=== PATIENT | female | born 1965 | race Caucasian/White ===

== ENCOUNTER 2018-11-13 23:23 | Inpatient (IN) | payer BC, MEDICAID ==
[~2018-11-13] VITALS: Ht 152.4 cm; Wt 66.2 kg
[~2018-11-13 23:23] MED LIST: CYCL10TA7 PO; IBUP-1542 PO
[2018-11-14] MEDS ORDERED: SOD CHLORIDE 0.9% 500 ML IV STA (00:34)
[2018-11-14] MEDS ORDERED: MECL12.574 PO (02:31)
[2018-11-14] MEDS ORDERED: ACETAMINOPHEN 325 MG TAB PO PRN (06:00)
[2018-11-14] MEDS ORDERED: NACL 0.9% 3 ML SYG IV SCH (06:00)
[2018-11-14] MEDS ORDERED: ONDANSETRON 4 MG INJ IV PRN (06:00)
[2018-11-14] MEDS: HEPARIN 5,000 UNIT/1 ML VIAL SC SCH ×2 (08:23→20:55)
[2018-11-14] MEDS: ASPIRIN 81 MG TAB PO SCH (08:23)
--- NOTE | 2018-11-14 09:22 | HP ---
Assessment/Plan VTE Prophylaxis Pharmacological prophylaxis: heparin Lines/Catheters IV Catheter Type (from Nrs): Peripheral IV Assessment/Plan Assessment/Plan 53-year-old female with no significant past medical history who presents the ER complaining of headache, right upper extremity pain with mild weakness and questionable facial numbness. Was head CT showing a benign arachnoid cyst otherwise no acute findings PLAN -Patient is more bothered by right upper extremity pain especially in her shoulder area. Denied trauma. Head CT is negative for acute findings. She did mention about having had an MRI yesterday which showed water in her brain, which I believe is from the arachnoid cyst as noted on the CT -Plan is to manage her blood pressure -Obtain right shoulder x-ray -will treat with ibuprofen for possible arthritic pain in the right shoulder -Neurology consult -will leave the decision about repeating an MRI or additional brain imaging to neurology -We will start patient on low-dose aspirin and statin Result Diagram: 11/14/1810311/14/18 0104 Results 24hrs Laboratory Tests Test 11/14/18 00:47 11/14/18 01:04 11/14/18 01:09 Bedside Glucose 109 White Blood Count 6.4 Red Blood Count 4.58 Hemoglobin 12.5 Hematocrit 38.7 Mean Corpuscular Volume 84.5 Mean Corpuscular Hemoglobin 27.3 L Mean Corpuscular 32.3 Hemoglobin Concent Red Cell Distribution Width 12.9 Platelet Count 214 Mean Platelet Volume 11.6 H Immature Granulocytes % 0.200 Neutrophils % 52.7 Lymphocytes % 35.0 Monocytes % 7.7 Eosinophils % 3.9 Basophils % 0.5 Nucleated Red Blood Cells % 0.0 Immature Granulocytes # 0.010 Neutrophils # 3.4 Lymphocytes # 2.2 Monocytes # 0.5 Eosinophils # 0.3 Basophils # 0.0 Nucleated Red Blood Cells # 0.0 Prothrombin Time 11.7 L Prothrombin Time Ratio 0.9 INR International 0.85 Normalized Ratio Activated Partial Thromboplast 30.0 Time Sodium Level 143 Potassium Level 4.2 Chloride Level 108 Carbon Dioxide Level 26 Anion Gap 9 Blood Urea Nitrogen 18 Creatinine 0.45 Est Glomerular Filtrat > 60 Rate mL/min Glucose Level 101 Hemoglobin A1c 5.0 Calcium Level 10.0 Total Bilirubin 0.2 Direct Bilirubin 0.00 Indirect Bilirubin 0.2 Aspartate Amino 26 Transf (AST/SGOT) Alanine 25 Aminotransferase (ALT/SGPT) Alkaline Phosphatase 106 Troponin I < 0.012 Total Protein 7.5 Albumin 4.4 Globulin 3.10 Albumin/Globulin Ratio 1.41 Triglycerides Level 253 H Cholesterol Level 215 H LDL Cholesterol, Calculated 117 HDL Cholesterol 47 Cholesterol/HDL Ratio 4.5 Urine Color YELLOW Urine Clarity SLIGHTLY CLOUDY A Urine pH 5.0 Urine Specific [place] 1.020 Urine Ketones NEGATIVE Urine Nitrite NEGATIVE Urine Bilirubin NEGATIVE Urine Urobilinogen NEGATIVE Urine Leukocyte Esterase NEGATIVE Urine Microscopic RBC 2 Urine Microscopic WBC 3 Urine Squamous FEW Epithelial Cells Urine Bacteria FEW A Urine Mucus FEW A Urine Hemoglobin 1+ H Urine Glucose NEGATIVE Urine Total Protein NEGATIVE Urine Opiates Screen Negative Urine Barbiturates Negative Urine Amphetamines Screen Negative Urine Benzodiazepines Screen Negative Urine Cocaine Screen Negative Urine Cannabinoids Negative HPI/ROS Hx of Present Illness This is a 53-year-old female with no significant past medical history who presents the ER complaining of headache, right upper extremity pain with mild weakness and questionable facial numbness. She said she had an MRI at the outside facility yesterday and was told that that she has " water in her brain". On physical exam, patient does not have any focal weakness or numbness. She does have pain in the right upper extremity and shoulder area. She has full range of motion. She denies trauma. She denied slurred speech, facial droop, seizure-like activity, chest pain or shortness of breath. Her headache is intermittent and diffuse.. When she presented to ER, blood pressure was 180/88. Head CT shows a benign arachnoid cyst n the right middle cranial fossa otherwise no acute findings. PMH/Family/Social Past Medical History Medical History: other (See HPI) Medications Current Medications IV Flush (NS 3 ml) 3 ml PER PROTOCOL IV ; Start 11/14/18 at 06:00 Ondansetron HCl (Zofran Inj) 4 mg Q6H PRN IV NAUSEA/VOMITING; Start 11/14/18 at 06:00 Aspirin (Aspirin) 81 mg DAILY PO Last administered on 11/14/18at 08:23; Admin Dose 81 MG; Start 11/14/18 at 09:00 Acetaminophen (Tylenol Tab) 650 mg Q6H PRN PO .PAIN 1-3 OR TEMP; Start 11/14/18 at 06:00 Heparin Sodium (Porcine) (Heparin (5000 Units/1ml)) 5,000 unit Q12 SC Last administered on 11/14/18at 08:23; Admin Dose 5,000 UNIT; Start 11/14/18 at 09:00 Coded Allergies: No Known Allergy (Unverified , 11/14/18) Past Surgical History Past Surgical Hx: other (See HPI) Family History Significant Family History: no pertinent family hx Social History Alcohol Use: none Smoking Status: Never smoker Drug Use: none Exam/Review of Systems Vital Signs Vitals Vital Signs Date Temp Pulse Resp B/P (MAP) Pulse Ox O2 O2 Flow FiO2 Time Delivery Rate 11/14/18 98.1 65 15 122/71 99 Room Air 07:53 (88) Exam Constitutional: alert, oriented, well developed Head: normocephalic, atraumatic Eyes: EOMI, PERRL Respiratory: clear to auscultation, normal air movement Cardiovascular: regular rate and rhythm, nl pulses Gastrointestinal: soft, non-tender Musculoskeletal: other (Right shoulder pain) Neurological: nl mental status, nl speech, nl strength ROULA WOMACK MD Nov 14, 2018 09:22
[2018-11-14 13:25] VITALS: Ht 152.4 cm; Wt 66.2 kg
[2018-11-14 13:29] VITALS: BP 135/82; PULSE 77; RESP 18
[2018-11-14 13:36] VITALS: PULSE 80
--- NOTE | 2018-11-14 14:42 | QN ---
Documentation Comment 53-year-old female with history of headaches, vertigo, admitted with headache followed by right upper extremity numbness. Brain MRI with no acute intracranial pathology. Her symptoms have improved. We will go ahead and place a carotid ultrasound. We will call neurology evaluation and follow-up their recommendations. Patient was seen in collaboration with Dr. Sharp. AGNIESZKA CAMPBELL NP Nov 14, 2018 14:42
[2018-11-14 15:28] VITALS: BP 135/82; PULSE 79; RESP 18
[2018-11-14 16:03] VITALS: PULSE 78
--- NOTE | 2018-11-14 16:10 | CONS ---
Assessment/Plan Assessment/Plan Hospital Course 53 yo F with hx of migraines who presents for evaluation of shoulder pain, transient R forearm weakness/numbness in the context of headache... for which neurology is consulted. The clinical picture was most ominously concerning for TIA/minor stroke. MRI brain is reassuringly without subacute ischemia. Complicated migraine is aditionally considered... P: Trial of NSAIDs PRN headache as renal function allows BP and other medical management per primary PT/OT as necessary Will follow clinically, to recommend neurologic studies, as necessary Consultation Date/Type/Reason Type of Consult Neurology Reason for Consultation Headache, dizziness, R forearm numbness Requesting Provider: AGNIESZKA CAMPBELL NP Date/Time of Note DATE: 11/14/18 TIME: 15:52 Hx of Present Illness 53 yo F with reported hx of migraines, peripheral vertigo, and other comorbidities who presents for evaluation of R shoulder pain with forearm weakness/numbness. History was obtained from pt, daughter, HCP and chart review. Per pt report, she started having a headache with R shoulder pain ~ 3 days ago. She went for an MRI as an oupatient and was told that she had "water in her brain" which is why she presented to the ED. She states that when she arrived to the ED and was asked to sign papers, that's when she noticed the weakness and numbness in her R forearm as she was unable to write. She states that the weakness and numbness lasted a couple minutes before going away on its own. She denies similar sx in the past. She denies recent head injury or trauma. She endorses a migraine at this time, and currently denies weakness, dizziness, lightheadedness, changes in speech or vision, numbness or tingling. She also states that she has a 10 year hx of migraines. She described her migraines as headaches that come on gradually, start in the front of her head and occasionally radiate to the back of her head. She states that the pain usually severe, 10/10, that is dull and throbbing. Accompanying symptoms include dizziness with occasional nausea. She states that they usually go away with use of tylenol or OTC medicine. She denies aggravating factors. It is additionally elsewhere noted: Hx of Present Illness This is a 53-year-old female with no significant past medical history who presents the ER complaining of headache, right upper extremity pain with mild weakness and questionable facial numbness. She said she had an MRI at the outside facility yesterday and was told that that she has " water in her brain". On physical exam, patient does not have any focal weakness or numbness. She does have pain in the right upper extremity and shoulder area. She has full range of motion. She denies trauma. She denied slurred speech, facial droop, seizure-like activity, chest pain or shortness of breath. Her headache is intermittent and diffuse.. When she presented to ER, blood pressure was 180/88. Head CT shows a benign arachnoid cyst n the right middle cranial fossa otherwise no acute findings. negative unless noted otherwise in HPI Exam/Review of Systems Exam Vitals Vital Signs Date Temp Pulse Resp B/P (MAP) Pulse Ox O2 O2 Flow FiO2 Time Delivery Rate 11/14/18 97.2 79 18 135/82 96 15:28 (99) 11/14/18 Room Air 07:53 Exam PE: Gen Appearance: No Apparent Distress HEENT: Normocephalic Cardiovascular: Regular rate Lungs: Clear bilaterally Abdomen: Soft Extremities: Dry NE: The patient was alert and oriented. Language was normal. Fund of knowledge was normal. Pupils were equal and reactive to light. There was no afferent pupillary defect. Visual rueda were normal. Funduscopic examination was limited. Extra-ocular movements were full. Ptosis was absent. There was no nystagmus. Facial sensation was normal. Face was symmetric with normal strength. Hearing was intact. Palate movements were normal. Neck strength was normal. There was normal tongue bulk and speed of movement. Tone was normal. Muscle bulk was normal. I did not see fasciculations. Arms and legs were strong. Vibration sensation was normal. Temperature and pinprick sensation was normal. Rapid alternating movements were normal. There was no dysmetria. There was no intention tremor. Gait was deferred due to bedrest. Arm and leg reflexes were 2+ and symmetric. Gastelum's sign was absent. Plantar responses were flexor. Results Result Diagram: 11/14/1810311/14/18103 Results 24hrs Laboratory Tests Test 11/14/18 00:47 11/14/18 01:04 11/14/18 01:09 Bedside Glucose 109 White Blood Count 6.4 Red Blood Count 4.58 Hemoglobin 12.5 Hematocrit 38.7 Mean Corpuscular Volume 84.5 Mean Corpuscular Hemoglobin 27.3 L Mean Corpuscular 32.3 Hemoglobin Concent Red Cell Distribution Width 12.9 Platelet Count 214 Mean Platelet Volume 11.6 H Immature Granulocytes % 0.200 Neutrophils % 52.7 Lymphocytes % 35.0 Monocytes % 7.7 Eosinophils % 3.9 Basophils % 0.5 Nucleated Red Blood Cells % 0.0 Immature Granulocytes # 0.010 Neutrophils # 3.4 Lymphocytes # 2.2 Monocytes # 0.5 Eosinophils # 0.3 Basophils # 0.0 Nucleated Red Blood Cells # 0.0 Prothrombin Time 11.7 L Prothrombin Time Ratio 0.9 INR International 0.85 Normalized Ratio Activated Partial Thromboplast 30.0 Time Sodium Level 143 Potassium Level 4.2 Chloride Level 108 Carbon Dioxide Level 26 Anion Gap 9 Blood Urea Nitrogen 18 Creatinine 0.45 Est Glomerular Filtrat > 60 Rate mL/min Glucose Level 101 Hemoglobin A1c 5.0 Calcium Level 10.0 Total Bilirubin 0.2 Direct Bilirubin 0.00 Indirect Bilirubin 0.2 Aspartate Amino 26 Transf (AST/SGOT) Alanine 25 Aminotransferase (ALT/SGPT) Alkaline Phosphatase 106 Troponin I < 0.012 Total Protein 7.5 Albumin 4.4 Globulin 3.10 Albumin/Globulin Ratio 1.41 Triglycerides Level 253 H Cholesterol Level 215 H LDL Cholesterol, Calculated 117 HDL Cholesterol 47 Cholesterol/HDL Ratio 4.5 Urine Color YELLOW Urine Clarity SLIGHTLY CLOUDY A Urine pH 5.0 Urine Specific [place] 1.020 Urine Ketones NEGATIVE Urine Nitrite NEGATIVE Urine Bilirubin NEGATIVE Urine Urobilinogen NEGATIVE Urine Leukocyte Esterase NEGATIVE Urine Microscopic RBC 2 Urine Microscopic WBC 3 Urine Squamous FEW Epithelial Cells Urine Bacteria FEW A Urine Mucus FEW A Urine Hemoglobin 1+ H Urine Glucose NEGATIVE Urine Total Protein NEGATIVE Urine Opiates Screen Negative Urine Barbiturates Negative Urine Amphetamines Screen Negative Urine Benzodiazepines Screen Negative Urine Cocaine Screen Negative Urine Cannabinoids Negative Medications Medication Current Medications IV Flush (NS 3 ml) 3 ml PER PROTOCOL IV ; Start 11/14/18 at 06:00 Ondansetron HCl (Zofran Inj) 4 mg Q6H PRN IV NAUSEA/VOMITING; Start 11/14/18 at 06:00 Aspirin (Aspirin) 81 mg DAILY PO Last administered on 11/14/18at 08:23; Admin Dose 81 MG; Start 11/14/18 at 09:00 Acetaminophen (Tylenol Tab) 650 mg Q6H PRN PO .PAIN 1-3 OR TEMP Last ad ministered on 11/14/18at 14:02; Admin Dose 650 MG; Start 11/14/18 at 06:00 Heparin Sodium (Porcine) (Heparin (5000 Units/1ml)) 5,000 unit Q12 SC Last administered on 11/14/18 08:23; Admin Dose 5,000 UNIT; Start 11/14/18 at 09:00 Atorvastatin Calcium (Lipitor) 20 mg QHS PO ; Start 11/14/18 at 21:00 Past Medical History reviewed Medical History: other (See HPI) Home Meds Active Scripts Ibuprofen* (Motrin*) 600 Mg Tab, 600 MG PO Q6H PRN for PAIN AND OR ELEVATED TEMP, #30 Prov:SYEDA GREEN. 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/15 Reported Medications Meclizine Hcl* (Antivert*) 12.5 Mg Tab, 12.5 MG PO Q8H PRN for VERTIGO, #30 TAB 11/14/18 Discontinued Scripts Cyclobenzaprine Hcl* (Cyclobenzaprine Hcl*) 10 Mg Tablet, 10 MG PO TID, #15 TAB Prov:SYEDA GREEN. 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/15 Medications Current Medications IV Flush (NS 3 ml) 3 ml PER PROTOCOL IV ; Start 11/14/18 at 06:00 Ondansetron HCl (Zofran Inj) 4 mg Q6H PRN IV NAUSEA/VOMITING; Start 11/14/18 at 06:00 Aspirin (Aspirin) 81 mg DAILY PO Last administered on 11/14/18at 08:23; Admin Dose 81 MG; Start 11/14/18 at 09:00 Acetaminophen (Tylenol Tab) 650 mg Q6H PRN PO .PAIN 1-3 OR TEMP Last administered on 11/14/18at 14:02; Admin Dose 650 MG; Start 11/14/18 at 06:00 Heparin Sodium (Porcine) (Heparin (5000 Units/1ml)) 5,000 unit Q12 SC Last administered on 11/14/18at 08:23; Admin Dose 5,000 UNIT; Start 11/14/18 at 09:00 Atorvastatin Calcium (Lipitor) 20 mg QHS PO ; Start 11/14/18 at 21:00 Allergies: Coded Allergies: No Known Allergy (Unverified , 11/14/18) Past Surgical History reviewed Past Surgical Hx: other (See HPI) Social History reviewed Alcohol Use: none Smoking Status: Never smoker Drug Use: none ABHILASH THOMPSON NP Nov 14, 2018 16:03 FRANKIE LOWERY Nov 15, 2018 06:51
[2018-11-14 19:58] VITALS: BP 129/71; PULSE 77; RESP 18
[2018-11-14 20:03] VITALS: PULSE 81
[2018-11-14] MEDS ORDERED: ATORVASTATIN 20 MG TAB PO SCH (21:00)
[2018-11-15] VITALS (10 sets, daily range): BP systolic 125–133; BP diastolic 68–77; PULSE 72–93; RESP 16–18
[2018-11-15] MEDS: ASPIRIN 81 MG TAB PO SCH (08:16)
[2018-11-15] MEDS: HEPARIN 5,000 UNIT/1 ML VIAL SC SCH (08:18)
[2018-11-15] MEDS ORDERED: NAPROXEN 250 MG TAB PO PRN (14:00)
--- NOTE | 2018-11-15 14:37 | PDOCDIS ---
Discharge Instructions CONDITION [id number] Patient Condition: [id number] Stable HOME CARE INSTRUCTIONS: [id number] Diet Instructions: [id number] Low Fat /Cholesterol FOLLOW UP/APPOINTMENTS Follow-up Plan Follow-up with primary care physician in 1 week. AGNIESZKA CAMPBELL NP Nov 15, 2018 14:37
[2018-11-15] MEDS ORDERED: OMEG1CAP20 PO (14:38)
[2018-11-15] MEDS ORDERED: NAPR-683 PO (14:38)
--- NOTE | 2018-11-15 14:39 | CONS ---
Assessment/Plan Assessment/Plan Hospital Course 53 yo F with hx of migraines who presents for evaluation of shoulder pain, transient R forearm weakness/numbness in the context of headache... for which neurology is consulted. The clinical picture was most ominously concerning for TIA/minor stroke. MRI brain is reassuringly without subacute ischemia. Complicated migraine is a diagnosis of exclusion. CUS is unremarkable. LDL 117 P: Ok to cont trial of NSAIDs PRN headache Protonix for GI ppx while on NSAIDs BP and other medical management per primary PT/OT as necessary Will follow clinically, to recommend neurologic studies, as necessary Consultation Date/Type/Reason Admit Date/Time Nov 14, 2018 at 03:17 Type of Consult Neurology Reason for Consultation Headache, dizziness, R forearm numbness Requesting Provider: AGNIESZKA CAMPBELL NP Date/Time of Note DATE: 11/15/18 TIME: 14:39 24 HR Interval Summary Free Text/Dictation Continues acute care. Pt denies headache, dizziness, numbness, or other focal sx at this time. Exam Vital Signs Vitals Vital Signs Date Temp Pulse Resp B/P (MAP) Pulse Ox O2 O2 Flow FiO2 Time Delivery Rate 11/15/18 75 12:04 11/15/18 98.0 16 133/77 98 Room Air 11:35 (95) Intake and Output 11/14/18 11/14/18 11/15/18 1515:00 23:00 07:00 IntakeIntake Total 480 ml 700 ml BalanceBalance 480 ml 700 ml Exam PE: Gen Appearance: No Apparent Distress HEENT: Normocephalic Cardiovascular: Regular rate Lungs: Clear bilaterally Abdomen: Soft Extremities: Dry NE: The patient was alert and oriented. Language was normal. Fund of knowledge was normal. Pupils were equal and reactive to light. There was no afferent pupillary defect. Visual rueda were normal. Funduscopic examination was limited. Extra-ocular movements were full. Ptosis was absent. There was no nystagmus. Facial sensation was normal. Face was symmetric with normal strength. Hearing was intact. Palate movements were normal. Neck strength was normal. There was normal tongue bulk and speed of movement. Tone was normal. Muscle bulk was normal. I did not see fasciculations. Arms and legs were strong. Vibration sensation was normal. Temperature and pinprick sensation was normal. Rapid alternating movements were normal. There was no dysmetria. There was no intention tremor. Gait was steady. Arm and leg reflexes were 2+ and symmetric. Gastelum's sign was absent. Plantar responses were flexor. ABHILASH THOMPSON NP Nov 15, 2018 14:39
--- NOTE | 2018-11-15 14:42 | DS ---
Date/Time of Note Date/Time of Note DATE: 11/15/18 TIME: 14:41 Discharge Summary Admission/Discharge Info Admit Date/Time Nov 14, 2018 at 03:17 Discharge Date/Time Discharge Diagnosis Headache/numbness. Resolved. Stroke ruled out. Triglyceridemia Patient Condition: Stable Consults Procedures 11/14/2018. Brain MRI. IMPRESSION: 1. No evidence of acute intracranial pathology. 2. Right middle cranial fossa arachnoid cyst. Hospital Course 53-year-old female with history of headaches, vertigo, admitted with headache followed by right upper extremity numbness. Imaging studies including brain MRI unremarkable. Patient was evaluated by neurologist. Patient's symptoms improved with low-dose NSAIDs. There is no further neuro work-up indicated. Patient is feeling back to her normal with no further numbness or headache and wanted to be discharged. Patient was also noted with triglyceridemia for which fish oil supplementation and diet changes advised with follow-up labs in 4 weeks. Approximately 60 m spent in correlating the discharge on this patient. Home Meds Active Scripts [place]-3/Dha/Epa/Fish Oil (FISH OIL 1,000 MG SOFTGEL) 1 Each Capsule, 1 EACH PO B ID, #60 CAP Prov:AGNIESZKA CAMPBELL NP 11/15/18 Naproxen* (Naproxen*) 250 Mg Tablet, 250 MG PO BID PRN for HEADACHE, #30 TAB Prov:AGNIESZKA CAMPBELL V. [employer] 11/15/18 Ibuprofen* (Motrin*) 600 Mg Tab, 600 MG PO Q6H PRN for PAIN AND OR ELEVATED TEMP, #30 Prov:SYEDA GREEN NP 01/09/15 Reported Medications Meclizine Hcl* (Antivert*) 12.5 Mg Tab, 12.5 MG PO Q8H PRN for VERTIGO, #30 TAB 11/14/18 Discontinued Scripts Cyclobenzaprine Hcl* (Cyclobenzaprine Hcl*) 10 Mg Tablet, 10 MG PO TID, #15 TAB Prov:SYEDA GREEN NP 01/09/15 Follow-up Plan Follow-up with primary care physician in 1 week. Primary Care Provider Care Physician No Primary Pending Labs Laboratory Tests Test 11/15/18 05:04 White Blood Count 4.9 10^3/ul (4.8-10.8) Red Blood Count 4.80 10^6/ul (4.20-5.40) Hemoglobin 12.8 g/dl (12.0-16.0) Hematocrit 40.9 % (37.0-47.0) Mean Corpuscular Volume 85.2 fl (82.0-101.0) Mean Corpuscular Hemoglobin 26.7 pg (29.0-33.0) Mean Corpuscular Hemoglobin Concent 31.3 g/dl (32.0-37.0) Red Cell Distribution Width 12.8 % (11.5-14.5) Platelet Count 203 10^3/UL (140-415) Mean Platelet Volume 11.5 fl (7.4-10.4) Immature Granulocytes % 0.200 % (0.001-0.429) Neutrophils % 50.4 % (39.0-77.0) Lymphocytes % 38.0 % (15.0-51.0) Monocytes % 6.3 % (0.0-11.0) Eosinophils % 4.3 % (0.0-7.0) Basophils % 0.8 % (0.0-2.0) Nucleated Red Blood Cells % 0.0 /100WBC (0.0-0.0) Immature Granulocytes # 0.010 10^3/ul (0.0-0.031) Neutrophils # 2.5 10^3/ul (1.6-7.5) Lymphocytes # 1.9 10^3/ul (0.8-2.9) Monocytes # 0.3 10^3/ul (0.3-0.9) Eosinophils # 0.2 10^3/ul (0.0-0.5) Basophils # 0.0 10^3/ul (0.0-0.1) Nucleated Red Blood Cells # 0.0 10^3/ul (0.0-0.0) Sodium Level 142 mmol/L (135-144) Potassium Level 4.3 mmol/L (3.5-5.1) Chloride Level 109 mmol/L (97-110) Carbon Dioxide Level 26 mmol/L (21-31) Anion Gap 7 (5-13) Blood Urea Nitrogen 15 mg/dl (7-20) Creatinine 0.44 mg/dl (0.44-1.00) Est Glomerular Filtrat Rate mL/min > 60 mL/min (>60) Glucose Level 94 mg/dl (70-220) Hemoglobin A1c 4.9 % (0-5.9) Calcium Level 9.5 mg/dl (8.4-10.2) Magnesium Level 1.9 mg/dl (1.7-2.5) Total Bilirubin 0.3 mg/dl (0.2-1.3) Direct Bilirubin 0.00 mg/dl (0.00-0.20) Indirect Bilirubin 0.3 mg/dl (0-1.1) Aspartate Amino Transf (AST/SGOT) 29 IU/L (15-46) Alanine Aminotransferase (ALT/SGPT) 22 IU/L (13-69) Alkaline Phosphatase 90 IU/L (42-121) Total Protein 7.2 g/dl (6.1-8.1) Albumin 4.0 g/dl (3.3-4.9) Globulin 3.20 g/dl (1.3-3.2) Albumin/Globulin Ratio 1.25 Triglycerides Level 224 mg/dl (0-149) Cholesterol Level 211 mg/dl (100-200) LDL Cholesterol, Calculated 121 mg/dl HDL Cholesterol 45 mg/dl (37-92) Cholesterol/HDL Ratio 4.6 RATIO AGNIESZKA CAMPBELL V. [employer] Nov 15, 2018 14:42
== END 2018-11-15 17:24 | disposition home or self-care (01) | DRG 103 ==
LOC: E/R 23:23 → 6WM 11-14 03:17
PROVIDERS: ADMIT Internal Medicine; ATTEND Internal Medicine
DX: R51 Headache (principal); R20.0 Anesthesia of skin; G93.0 Cerebral cysts
CPT/HCPCS: 70450; 70551; 71045; 80053; 80061; 80307; 81001; 82962; 83036; 83735; 84484; 85025; 85610; 85730; 93005; 93880; 97161; J1644; J7040